=== PATIENT | female | born 1980 | race Caucasian/White ===

== ENCOUNTER → 2020-08-02 09:38 | Outpatient (CLI) | payer OTHER, SELFPAY ==
--- NOTE | ~2020-08-02 | US_ITS ---
EXAMINATION: US transvaginal DATE: 08/02/2020 10:14 INDICATION: Displacement of IUD with short strings on exam. TECHNIQUE: Multiple transabdominal and endovaginal sonographic images of the pelvis were obtained. COMPARISON: None. FINDINGS: The uterus measures 6.9 x 3.1 x 4.8 cm. The endometrial complex measures 3 mm in thickness. Linear e chogenic and shadowing T-shaped IUD in expected position within the endometrial canal with craniocaud ally oriented central stem and with horizontally oriented limbs extending across the fundus. The righ t ovary measures 3.8 x 2.1 x 2.4 cm. The left ovary measures 2.2 x 1.5 x 1.7 cm. 7 mm anechoic follic le in the right ovary. Vascular flow identified in both ovaries on color Doppler. There is no free fl uid in the pelvis. IMPRESSION: 1. Normal pelvic ultrasound with T-shaped IUD in expected position within the endometrial canal. Reviewed, dictated and finalized at location B. NING AND QUALITY MANAGER IMPRESSION: 1. Normal pelvic ultrasound with T-shaped IUD in expected position within the e ndometrial canal.
== END ==
PROVIDERS: Visit Provider Nurse Practitioner
DX: T83.32XA Displacement of intrauterine contraceptive device, initial encounter (principal)
CPT/HCPCS: 76830

== ENCOUNTER → 2020-08-27 00:27 | Outpatient (CLI) | payer OTHER, SELFPAY ==
[2020-08-27 18:30] LABS: SARS-CoV-2 RNA PCR Negative
== END ==
PROVIDERS: Visit Provider Internal Medicine Gastroenterology
DX: Z01.812 Encounter for preprocedural laboratory examination (principal); Z20.822 Contact with and (suspected) exposure to COVID-19
CPT/HCPCS: C9803; U0003; U0005

== ENCOUNTER 2020-08-30 04:34 | Day surgery (SDC) | payer OTHER, SELFPAY ==
[2020-08-21 15:46] VITALS: BMI 20.9
[2020-08-30 11:15] VITALS: BP 150/64; PULSE 69; RESP 16; TEMP 36.8; O2SAT 100
[2020-08-30] MEDS: LACTATED RINGERS 1,000 ML 150 ML IV CONT (11:24)
--- NOTE | 2020-08-30 11:40 | WPDANESEPPF ---
Anes - Initial Pre Proc Eval Procedure: Operation Date: 08/30/20 12:30 Proposed Procedures p Colonoscopy - Helio Almonte MD Date/Time: 08/30/20 11:40 Surgeon: Helio Almonte MD Pre Op Diagnosis: Rectal Bleeding Patient Data Age: 40 Gender: F Height: 5 ft 6 in Weight: 60.4 kg Last Vital Signs Temp 98.2 F 08/30/20 11:15 Pulse 69 08/30/20 11:15 Resp 16 08/30/20 11:15 BP 150/64 H 08/30/20 11:15 Pulse Ox 100 08/30/20 11:15 Allergies Allergy/AdvReac Type Severity Reaction Status Date / Time Sulfa (Sulfonamide Allergy Intermediate Skin Verified 08/30/20 11:14 Antibiotics) Reaction Home Medications Medication Instructions Recorded Confirmed Type prenat.vits,john,jdh-kuvb-[id number] 1 tablet PO DAILY 08/09/20 08/30/20 History scopolamine base 1 mg over 3 days 1 patch TRANSDERMAL Q3D PRN #1 ea 08/09/20 08/30/20 Rx transdermal patch Patient hx anesthesia problems: none Family hx anesthesia problems: none PMFSH Past Medical History Medical History (Updated 08/30/20 @ 11:40 by Severo Cartagena MD) Healthy adult Family History Family History Mother Patient's mother is in good health Father Patient's father is in good health Grandparent Family history of malignant neoplasm of breast Family history of coronary artery disease Social History Social History Smoking status: Never smoker Alcohol intake: never Substance use: never Substance use type: does not use Living arrangements: with family Spiritual care concerns: No Anes - Eval Final PreProcedure Day of Procedure 08/30/20 11:40 Patient weight: normal Heart: regular rate and rhythm Lungs: clear to auscultation Airway: Mallampati scale class II Neurological: alert and oriented Last oral intake: >/= 8 hours ASA classification: I Emergent: no Anesthetic plan: proceed Anesthesia type and monitoring: general GIVS and standard monitoring Informed Consent: The patient's anesthetic plan and its attendant risks and benefits were discussed with the patient/family/POA. Questions were solicited and answers provided to the satisfaction of the patient/family/POA.
--- NOTE | 2020-08-30 12:15 | WPDHPUPDATE1 ---
History and Physical Update Update Date/Time: 08/30/20 12:15 History and Physical has been reviewed, including an updated exam of the patient. There are NO changes in the patient's condition. Risks, benefits, and alternatives have been discussed and questions answered. Patient agrees to proceed with procedure.
[2020-08-30 12:38] VITALS: BP 108/66; PULSE 66; RESP 22; O2SAT 100
[2020-08-30 12:48] VITALS: BP 110/69; PULSE 61; RESP 19; O2SAT 100
[2020-08-30 12:58] VITALS: BP 112/68; PULSE 59; RESP 18; O2SAT 100
== END 2020-08-30 13:12 | disposition home or self-care (01) ==
PROVIDERS: PCP Family Medicine; Visit Provider Internal Medicine Gastroenterology
PROC: 0DJD8ZZ Inspection of Lower Intestinal Tract, Via Natural or Artificial Opening Endoscopic (ICD-10-PCS; CPT 45378; principal; 2020-08-30 12:30)
DX: K92.1 Melena (principal); D12.8 Benign neoplasm of rectum; K64.8 Other hemorrhoids
CPT/HCPCS: 45385; 88305; J2704; J7120

== ENCOUNTER → 2021-05-09 14:51 | Outpatient (CLI) | payer OTHER, SELFPAY ==
--- NOTE | ~2021-05-09 | US_ITS ---
EXAMINATION: US OB transvaginal DATE: 05/09/2021 15:39 INDICATION: First trimester dating TECHNIQUE: Real-time pelvic transabdominal and transvaginal ultrasound was performed. COMPARISON: None. FINDINGS: The uterus measures 6.9 x 4.4 x 5.3 cm. There is an intrauterine gestational sac. A yolk s ac is identified. heart motion is identified measuring 119 beats per minute (bpm) by M-mode Dop pler. The crown rump length measures 4 mm , which correlates with an estimated gestational age of 6 weeks and 1 day(s) (+/-) 4 day(s). The left ovary is not visualized however no left adnexal abnormality is seen. The right ovary measure s 3.8 x 2.7 x 2.7 cm. There is normal vascular flow in the right ovary. There is no free fluid in the pelvis. IMPRESSION: 1. Live intrauterine with an estimated gestational age of 6 weeks and 1 day(s) (+/-) 4 day( s) and an estimated delivery date of 01/01/2022. Reviewed, dictated and finalized at location A. PATIONAL HEALTH NURSING DIRECTOR IMPRESSION: 1. Live intrauterine with an estimated gestational age of 6 weeks and 1 day(s) (+/-) 4 day(s) and an estimated delivery date of 01/01/2022.
== END ==
PROVIDERS: Visit Provider Obstetrics & Gynecology Gynecology
DX: O26.21 Pregnancy care for patient with recurrent pregnancy loss, first trimester (principal); Z3A.01 Less than 8 weeks gestation of pregnancy
CPT/HCPCS: 76817

== ENCOUNTER → 2021-06-03 15:35 | Outpatient (CLI) | payer OTHER, SELFPAY ==
--- NOTE | ~2021-06-03 | US_ITS ---
EXAMINATION: US OB transvaginal EXAM DATE: 06/03/2021 15:54 INDICATION: Bleeding during the 1st trimester. TECHNIQUE: Pelvic obstetrical transabdominal sonogram was performed by a technologist. There are mu ltiple grayscale and Doppler images available for interpretation. There are no earlier studies of th is gestation for comparison. FINDINGS: Uterus measures 9.3 x 5.0 x 6.5 cm. There is a rounded region of echogenicity within the ge station sac measuring 1 cm in largest dimension which corresponds to age 7 weeks 0 days. Rounded shap e is abnormal for crown-rump appearance, and no cardiac activity was demonstrated as would be e xpected for intrauterine gestation this size. No definite yolk sac identified. There is subchorionic hematoma measuring 7 x 5 x 12 mm. The ovaries are morphologically normal. IMPRESSION: demise. Small subchorionic hematoma. Reviewed, dictated and finalized at location A. STOCK LABORER
== END ==
PROVIDERS: Visit Provider Obstetrics & Gynecology Gynecology
DX: O36.4XX0 Maternal care for intrauterine death, not applicable or unspecified (principal); Z3A.00 Weeks of gestation of pregnancy not specified
CPT/HCPCS: 76817

== ENCOUNTER 2021-07-21 15:59 | Outpatient (RCR) | payer OTHER, SELFPAY ==
[2021-06-04] MEDS: RHO(D) IMMUNE GLOBULIN 300 MCG/2 ML SYRINGE IM (14:12)
[2021-06-17 14:58] LABS: Beta HCG Quantitative 215.84 mIU/ML
== END 2021-07-27 23:59 | disposition home or self-care (01) ==
LOC: ANHLAB 15:59
PROVIDERS: PCP Family Medicine; Visit Provider Obstetrics & Gynecology Gynecology
DX: Z29.13 Encounter for prophylactic Rho(D) immune globulin (principal); O36.0190 Maternal care for anti-D [Rh] antibodies, unspecified trimester, not applicable or unspecified; O26.21 Pregnancy care for patient with recurrent pregnancy loss, first trimester; O26.851 Spotting complicating pregnancy, first trimester; Z3A.00 Weeks of gestation of pregnancy not specified
CPT/HCPCS: 36415; 84702; 85461; 90384; 96372; J2790

== ENCOUNTER 2021-09-02 14:47 | Outpatient (RCR) | payer OTHER, SELFPAY ==
[2021-08-11 16:31] LABS: Beta HCG Quantitative 9.55 mIU/ML
[2021-09-02 15:36] LABS: Beta HCG Quantitative 2.55 mIU/ML
== END 2021-10-26 23:59 | disposition home or self-care (01) ==
LOC: ANHLAB 14:47
PROVIDERS: Visit Provider Obstetrics & Gynecology Gynecology
DX: O02.1 Missed abortion (principal); Z3A.00 Weeks of gestation of pregnancy not specified
CPT/HCPCS: 36415; 84702

== ENCOUNTER → 2021-12-12 11:28 | Outpatient (CLI) | payer OTHER, SELFPAY ==
--- NOTE | ~2021-12-12 | MM_ITS ---
EXAMINATION: MM screening [facility] BI w maribel HISTORY: Baseline screening mammogram TECHNIQUE: Craniocaudal and mediolateral oblique 3-D tomosynthesis images were obtained and synthetic 2-D images were generated. CAD analysis was submitted and interpreted. COMPARISON: None, baseline BREAST PARENCHYMAL COMPOSITION: The breasts are extremely dense, which lowers the sensitivity of mamm ography. FINDINGS: RIGHT BREAST: An asymmetry is present in the posterior third of the upper breast on the mediolateral oblique view. LEFT BREAST: There are asymmetries in the middle third of the inner breast on the craniocaudal view a nd the posterior third of the lower breast on the mediolateral oblique view. IMPRESSION: 1. Bilateral breast asymmetries. 2. Additional mammographic views and possible breast ultrasound are recommended. BI-RADS Category 0: Incomplete: Needs additional imaging evaluation. Reviewed, dictated and finalized at location A. IMPRESSION: 1. Bilateral breast asymmetries. 2. Additional mammographic views and possible breast ultrasound are recommended . BI-RADS Category 0: Incomplete: Needs additional imaging evaluation.
== END ==
PROVIDERS: PCP Family Medicine; Visit Provider Nurse Practitioner
DX: Z12.31 Encounter for screening mammogram for malignant neoplasm of breast (principal); R92.8 Other abnormal and inconclusive findings on diagnostic imaging of breast
CPT/HCPCS: 77063; 77067

== ENCOUNTER 2022-01-14 12:56 | Outpatient (RCR) | payer OTHER, SELFPAY | END 2022-04-12 23:59 | disposition home or self-care (01) | LOC: ANHGOSHLAB 12:56 | PROVIDERS: PCP Family Medicine; Visit Provider Obstetrics & Gynecology Gynecology | DX: O26.21 Pregnancy care for patient with recurrent pregnancy loss, first trimester (principal); Z3A.00 Weeks of gestation of pregnancy not specified | CPT/HCPCS: 36415; 84702 ==

== ENCOUNTER → 2022-01-22 15:13 | Outpatient (CLI) | payer OTHER, SELFPAY ==
--- NOTE | ~2022-01-22 | US_ITS ---
EXAMINATION: US OB <= 14 weeks fetus DATE: 01/22/2022 15:37 INDICATION: First trimester dating and viability assessment TECHNIQUE: Real-time pelvic transabdominal and transvaginal ultrasound was performed. COMPARISON: None. FINDINGS: The uterus measures 8.1 x 5.6 x 7.0 cm. There is an intrauterine gestational sac. A yolk s ac is identified. heart motion is identified measuring 165 beats per minute (bpm) by M-mode Dop pler. The crown rump length measures 1.8 cm , which correlates with an estimated gestational ag e of 8 weeks and 2 day(s) (+/-) 5 day(s). The right ovary is not visualized however no right adnexal abnormality is seen. The left ovary measur es 1.9 x 1.2 x 1.2 cm. There is normal vascular flow in the left ovary. There is no free fluid in the pelvis. IMPRESSION: 1. Live intrauterine with an estimated gestational age of 8 weeks and 2 day(s) (+/-) 5 day( s) and an estimated delivery date of 09/01/2022. Reviewed, dictated and finalized at location B. IMPRESSION: 1. Live intrauterine with an estimated gestational age of 8 weeks and 2 day(s) (+/-) 5 day(s) and an estimated delivery date of 09/01/2022.
== END ==
PROVIDERS: PCP Obstetrics & Gynecology Gynecology; Visit Provider Obstetrics & Gynecology Gynecology
DX: O26.21 Pregnancy care for patient with recurrent pregnancy loss, first trimester (principal); Z3A.08 8 weeks gestation of pregnancy
CPT/HCPCS: 76801

== ENCOUNTER 2022-02-22 09:34 | Emergency (ER) | payer OTHER, SELFPAY ==
[2022-02-22 09:50] VITALS: BP 124/77; PULSE 92; RESP 16; TEMP 37.1; O2SAT 100
--- NOTE | 2022-02-22 10:01 | ED.URI ---
HPI - URI/Sore Throat General Chief Complaint: Upper Respiratory Infection Stated Complaint: sore throat, ear irritation Time Seen by Provider: 02/22/22 09:37 Source: patient Mode of arrival: ambulatory Limitations: no limitations History of Present Illness HPI Narrative: 41-year-old female presents to [facility] with complaints of sore throat and bilateral ear pressure for the past 2 days. Patient denies fever, bodies, chills, nausea, vomiting or diarrhea. Patient is currently 13 weeks . Patient has not tried taking any fkki-[id number]-[id number] medications for her symptoms. Patient reports that she did complete negative home COVID test. Patient denies sick contacts. Patient denies recent travel. MD elicited complaint: sore throat Onset (ago): day(s) (2) Able to tolerate fluids by mouth: Yes Relieving factors: nothing Associated symptoms: ear pain Treatments prior to arrival: none Related Data Home Medications Medication Instructions Recorded Confirmed prenat.vits,john,jhp-ibxl-cvfrb 1 tablet PO DAILY 08/09/20 02/22/22 Allergies Allergy/AdvReac Type Severity Reaction Status Date / Time Sulfa (Sulfonamide Allergy Intermediate Skin Verified 02/22/22 09:44 Antibiotics) Reaction Review of Systems Constitutional: Constitutional: Denies chills, Denies fatigue, Denies fever(s) and Denies weakness ENT: Denies dysphagia, Denies vertigo, Denies dizziness, Denies epistaxis and Reports sore throat Comments: Bilateral ear pressure Respiratory: Respiratory: Denies cough, Denies dyspnea and Denies wheezing Gastrointestinal: Gastrointestinal: Denies heartburn, Denies diarrhea, Denies nausea and Denies vomiting Integumentary/Breasts: Skin/Breast: Denies rash PMFSH Past Medical History Medical History Healthy adult Rectal polyp Family History Family History Mother Patient's mother is in good health Father Patient's father is in good health Grandparent Family history of malignant neoplasm of breast Family history of coronary artery disease Social History Social History Alcohol intake: never Substance use: never Substance use type: does not use Spiritual care concerns: No Comments At time of signature, I agree with nursing past medical, surgical, social and family history. There is no relevant family history pertinent to the presenting complaint. Exam Const: General: healthy appearing and no acute distress Nutritional Appearance: well nourished Orientation/consciousness: patient oriented x3 Limitations: no limitations HENMT: Head: normal to inspection Ears: external ears normal, TM's normal bilaterally and EAC's normal General nose exam: Normal external nose present Face and sinus: normal facial exam Mouth: Yes Normal oral and palatal mucosa present and Yes moist mucous membranes Teeth and gingiva: dentition normal Throat: posterior oropharynx normal and uvula midline Neck: Neck: normal visual inspection Resp: Effort & Inspection: normal respiratory effort and not labored Auscultation: clear to auscultation bilaterally and no crackles Cardio: Rate: regular rate Rhythm: regular rhythm Heart sounds: no murmurs Skin: General skin exam: normal color Rashes: no rashes Wounds: no wounds Neuro: General: patient oriented x3 Cranial nerves: Yes Nystagmus not present Speech: normal speech Gait exam (Neuro): Normal gait present Psych: Mental Status: mental status grossly normal Affect: normal affect Attitude: cooperative Course Course Level of Care: Express Care Visit Vital Signs Vital signs: Vital Signs Temperature 37.1 C 02/22/22 09:50 Pulse Rate 92 02/22/22 09:50 Respiratory Rate 16 02/22/22 09:50 Blood Pressure 124/77 02/22/22 09:50 Pulse Oximetry 100 02/22/22 09:50 Temperature 37.1 C
== END 2022-02-22 10:12 | disposition home or self-care (01) ==
PROVIDERS: Emergency Provider Nurse Practitioner Family; PCP Obstetrics & Gynecology Gynecology
DX: J02.9 Acute pharyngitis, unspecified (principal); O99.511 Diseases of the respiratory system complicating pregnancy, first trimester; Z3A.13 13 weeks gestation of pregnancy
CPT/HCPCS: 87081; 87880; 99213; G0463

== ENCOUNTER 2022-03-18 14:17 | Outpatient (CLI) | payer OTHER, SELFPAY ==
[2022-03-18 18:41] LABS: Basophils Percent Auto 0.4 % (0.2-1.2); Eosinophils Percent Auto 0.6 % (0-4.4); Hematocrit 36.9 % (37.0-47.0); Hemoglobin 12.3 g/dL (12.0-15.0); Immature Granulocyte Absolute 0.04 K/mm3 (0.00-0.031); Immature Granulocyte Percent A 0.6 % (0-0.5); Lymphocytes Percent Auto 18.9 % (18.3-44.2); Mean Corpuscular HGB Conc 33.3 g/dl (32-36); Mean Corpuscular Hemoglobin 30.9 pg (26-34); Mean Corpuscular Volume 92.7 fl (80-100); Mean Platelet Volume 10.9 fl (7.4-10.4); Monocytes Absolute Auto 0.5 K/mm3 (0.1-0.6); Monocytes Percent Auto 7.7 % (2.6-8.5); Neutrophils Absolute Auto 4.9 K/mm3 (1.3-6.7); Neutrophils Percent Auto 71.8 % (45.5-73.1); Platelet Count Result 173 k/mm3 (150-375); Red Blood Count 3.98 M/mm3 (4.2-5.4); Red Cell Distribution Width 13.2 % (11.5-14.5); White Blood Count 6.9 K/mm3 (4.5-10.0)
[2022-03-18 19:14] LABS: Hepatitis B Surface Antigen Negative (Negative); Rubella IgG Antibody 44.8 IU/ML
[2022-03-18 19:15] LABS: Vitamin D 25 Hydroxy 35.4 ng/mL
[2022-03-18 19:21] LABS: HIV 1/2 Ab P24 Ag Result Negative (Negative)
[2022-03-18 19:30] LABS: Hepatitis C Virus Antibody Negative (Negative)
[2022-03-19 06:35] LABS: Rapid Plasma Reagin Non-Reactive (NonReactive)
[2022-03-23 19:38] LABS: Red Blood Cell Folate 567 ng/mL RBC (>280)
== END 2022-03-18 14:18 | disposition home or self-care (01) ==
PROVIDERS: PCP Obstetrics & Gynecology Gynecology; Visit Provider Advanced Practice Midwife
DX: Z36.9 Encounter for antenatal screening, unspecified (principal); E55.9 Vitamin D deficiency, unspecified
CPT/HCPCS: 36415; 82306; 82728; 82747; 85025; 86592; 86703; 86762; 86803; 86850; 86900; 86901; 87340; G0432

== ENCOUNTER 2022-05-04 08:58 | Observation (INO) | payer OTHER, SELFPAY ==
[2022-05-04 09:19] VITALS: BP 116/71; PULSE 92
[2022-05-04 09:23] LABS: Appearance Urine Clear (Clear); Bilirubin Urine 1+ (Negative); Blood Urine Negative (Negative); Color Urine Yellow (Yellow); Glucose Urine UA Negative (Negative); Ketones Urine 4+ mg/dL (Negative); Leukocyte Esterase Ur Trace LEU/UL (Negative); Nitrate Urine Negative (Negative); Protein Urine 1+ mg/dL (Negative); Specific Grav Ur >= 1.030 (1.001-1.035); Urobilinogen Urine 0.2 mg/dL (<2.0); pH Urine 5.5 (5.0-9.0)
[2022-05-04 09:27] LABS: Bacteria Urine Trace /hpf; Mucus Urine Rare /lpf; RBC Urine 0-2 /hpf (0-2); Squamous Epithelial Cell Urine Moderate /hpf (Few)
[2022-05-04 09:28] LABS: Add Urine Microscopic? YES
[2022-05-04 09:30] VITALS: TEMP 36.7
--- NOTE | 2022-05-04 09:42 | PC.NURSE ---
Dr Avalos notified of nausea, vomiting and UA results, orders received.
[2022-05-04] MEDS: DEXTROSE 5%/LACTATED RINGERS 1,000 ML 1000 ML IV CONT (10:08)
[2022-05-04 10:17] VITALS: BMI 24.3
--- NOTE | 2022-05-04 10:17 | OBADM ---
This patient, Nan Curtis, admitted to the OB room OB Post 116 for observation. Patient/family oriented to hospital policies and general routines including ID bracelet, bed and alarms, visiting hours, pain management, procedures, bathroom and other care routines, personal items, smoking policy, room service/diet, and visiting hours. Patient/Family are encouraged to report perceived risks to care and to ask questions if they do not understand what they are told or what they should do.
[2022-05-04] MEDS: DEXTROSE 5%/LACTATED RINGERS 1,000 ML 250 ML IV CONT ×2 (11:07→15:53)
[2022-05-04] MEDS: ONDANSETRON INJ 4 MG/2 ML VIAL IV PUSH ×2 (11:08→18:54)
[2022-05-04 17:30] VITALS: RESP 18; TEMP 36.8
[2022-05-04 17:37] VITALS: BP 102/59; PULSE 86
--- NOTE | 2022-05-04 19:14 | PC.NURSE ---
1853 patient requested Zofran, states she is feeling better but not 100%. Encouraged to continue small frequent sips of PO fluids. Will reevaluate pt when IV fluids are finished. Pt instructed to call out with questions or concerns. Letitia Ohara RN
--- NOTE | 2022-05-04 20:52 | PC.NURSE ---
2030 Janie Williamson CNM in department. Updated on patient status, patient requesting to d/c home. I&O reviewed. Order received to d/c home with instructions to increase PO fluids and monitor. Verbal order received for Zofran ODT to be sent to pharmacy. Letitia Ohara RN
--- NOTE | 2022-05-08 09:08 | P.PNOB_ITS ---
OB - Triage/Final Diagnosis Visit Information Reason for evaluation: other (nausea with vomiting and severe dehydration) Comments/Additional reasons for admission: I have assessed the risk for this patient, Nan Curtis, and determined that she would benefit from observation care. Evaluation Laboratory results: Laboratory Tests 05/04/22 09:15 Urine Color Yellow Urine Appearance Clear Urine pH 5.5 Ur Specific [place] >= 1.030 Urine Protein 1+ H Urine Glucose (UA) Negative Urine Ketones 4+ H Ur Blood (Man) Negative Urine Nitrate Negative Urine Bilirubin 1+ H Urine Urobilinogen 0.2 Leukocyte Esterase Rfl Trace H Urine RBC 0-2 Urine WBC 4-6 H Ur Squamous Epith Cells Moderate H Urine Bacteria Trace Urine Mucus Rare
== END 2022-05-04 20:49 | disposition home or self-care (01) ==
PROVIDERS: Admitting Provider Obstetrics & Gynecology Gynecology; PCP Family Medicine; Visit Provider Advanced Practice Midwife
DX: O21.9 Vomiting of pregnancy, unspecified (principal); O99.282 Endocrine, nutritional and metabolic diseases complicating pregnancy, second trimester; E86.0 Dehydration; Z3A.22 22 weeks gestation of pregnancy
CPT/HCPCS: 81001; 96361; 96374; 96376; G0378; G0379; J2405; J7121

== ENCOUNTER 2022-06-28 12:06 | Outpatient (RCR) | payer OTHER, SELFPAY ==
[2022-06-27 10:55] LABS: Hematocrit 41.3 % (37.0-47.0); Hemoglobin 13.9 g/dL (12.0-15.0)
[2022-06-27 11:29] LABS: Vitamin D 25 Hydroxy 31.6 ng/mL
[2022-06-27 11:46] LABS: HIV 1/2 Ab P24 Ag Result Negative (Negative)
[2022-06-27 13:10] LABS: Glucose 91 mg/dL (65-110)
[2022-06-28] MEDS: RHO(D) IMMUNE GLOBULIN 300 MCG/2 ML SYRINGE IM (12:06)
== END 2022-06-28 13:00 | disposition home or self-care (01) ==
LOC: ANHLAB 12:06
PROVIDERS: PCP Family Medicine; Visit Provider Obstetrics & Gynecology Gynecology
DX: Z11.4 Encounter for screening for human immunodeficiency virus [HIV] (principal); Z29.13 Encounter for prophylactic Rho(D) immune globulin; O36.0190 Maternal care for anti-D [Rh] antibodies, unspecified trimester, not applicable or unspecified; Z3A.00 Weeks of gestation of pregnancy not specified
CPT/HCPCS: 36415; 82306; 82947; 85014; 85018; 85461; 86703; 86850; 86900; 86901; 90384; 96372; G0432; J2790

== ENCOUNTER → 2022-08-14 09:27 | Outpatient (CLI) | payer OTHER, SELFPAY ==
--- NOTE | ~2022-08-14 | US_ITS ---
EXAMINATION: US OB follow up DATE: 08/14/2022 10:13 INDICATION: Partial placenta previa. Third trimester. TECHNIQUE: Real-time transabdominal and transvaginal ultrasound of the pelvis was performed. COMPARISON: Ultrasound 01/22/2022 FINDINGS: There is a single living fetus in vertex presentation. The placenta is on the right, 0.6 cm from the cervix. The cervical length is 2.6 cm on transvaginal images, which is normal. heart rate is 1 55 beats per minute (bpm). The amniotic fluid index is 14.7 cm, which is normal. The following biometric data were obtained: Biparietal diameter (BPD): 9.1 cm; head circumference (HC): 33.2 cm; abdominal circumference (AC): 32 .5 cm; femur length (FL): 7.1 cm. These measurements are concordant. Estimated weight is 3003 g +/- 450 g, which correlates with the 39th percentile when 09/01/22 is used as estimated date of delivery. As single measurements, these parameters are each equal to the following estimated gestational ages: BPD: 37 weeks 0 days. HC: 37 weeks 6 days. AC: 36 weeks 3 days. FL: 36 weeks 3 days. estimated gestational age based solely on measurements from this exam is 37 weeks 0 days +/- 2 weeks 4 days. IMPRESSION: 1. Single living fetus in vertex presentation. 2. Estimated weight is 3003 g +/- 450 g, which correlates with the 39th percentile when 09/01/22 is used as estimated date of delivery. 3. Low lying placenta. Reviewed, dictated and finalized at location A.
== END ==
PROVIDERS: PCP Family Medicine; Visit Provider Advanced Practice Midwife
DX: O44.23 Partial placenta previa NOS or without hemorrhage, third trimester (principal); Z3A.37 37 weeks gestation of pregnancy
CPT/HCPCS: 76816

== ENCOUNTER 2022-08-26 11:03 | Outpatient (CLI) | payer OTHER, SELFPAY ==
[2022-08-26 18:44] LABS: Hematocrit 39.9 % (37.0-47.0); Hemoglobin 13.2 g/dL (12.0-15.0); Mean Corpuscular HGB Conc 33.1 g/dl (32-36); Mean Corpuscular Hemoglobin 31.4 pg (26-34); Mean Corpuscular Volume 94.8 fl (80-100); Mean Platelet Volume 12.6 fl (7.4-10.4); Platelet Count Result 167 k/mm3 (150-375); Red Blood Count 4.21 M/mm3 (4.2-5.4); Red Cell Distribution Width 12.7 % (11.5-14.5); White Blood Count 9.5 K/mm3 (4.5-10.0)
[2022-08-27 13:58] LABS: Rapid Plasma Reagin Non-Reactive (NonReactive)
== END 2022-08-26 11:04 | disposition home or self-care (01) ==
LOC: ANHGOSHLAB 11:05
PROVIDERS: PCP Family Medicine; Visit Provider Obstetrics & Gynecology Gynecology
DX: Z01.818 Encounter for other preprocedural examination (principal)
CPT/HCPCS: 36415; 85027; 86592; 86850; 86880; 86900; 86901

== ENCOUNTER 2022-08-27 05:29 | Inpatient (IN) | payer OTHER, SELFPAY ==
--- NOTE | 2022-08-26 15:27 | WPDANESEPPF ---
Anes - Initial Pre Proc Eval Procedure: Operation Date: 08/27/22 07:30 Proposed Procedures p Primary Section With Bilateral Salpingectomy - Steffany Avalos MD Date/Time: 08/26/22 15:27 Surgeon: Steffany Avalos MD Pre Op Diagnosis: C/S Patient Data Age: 42 Gender: F Height: Weight: Allergies Allergy/AdvReac Type Severity Reaction Status Date / Time Sulfa (Sulfonamide Allergy Intermediate Skin Verified 08/15/22 15:37 Antibiotics) Reaction Home Medications Medication Instructions Recorded Confirmed Type prenat.vits,john,ewa-qccc-gdahe 1 tablet PO DAILY 08/09/20 08/27/22 History Patient hx anesthesia problems: none Family hx anesthesia problems: none Results Review: All pre-operative results and documents have been reviewed as part of the pre-operative evaluation. [facility] Past Medical History Medical History Healthy adult Rectal polyp Family History Family History Mother Patient's mother is in good health Father Patient's father is in good health Grandparent Family history of malignant neoplasm of breast Family history of coronary artery disease Social History Social History Smoking status: Never smoker Second hand tobacco smoke exposure: No Alcohol intake: never Substance use: never Substance use type: does not use Lack of Transportation: No Lack of Food: Never True Current Housing: I Have Housing Concerned About Future Housing: No Difficulty Paying Gas/Electric Bills: No Difficulty Paying for Meds: No Currently Unemployed: No Education: Master's Degree or Higher Difficulty w/ Childcare or Family Care: No Living arrangements: with family Spiritual care concerns: No Anes - Eval Final PreProcedure Day of Procedure 08/26/22 15:27 Patient weight: obese Heart: regular rate and rhythm Lungs: clear to auscultation Airway: Mallampati scale class II Neurological: alert and oriented Last oral intake: >/= 8 hours ASA classification: II Emergent: no Anesthetic plan: proceed Anesthesia type and monitoring: regional spinal and standard monitoring Results Review: All pre-operative results and documents have been reviewed as part of the pre-operative evaluation. Informed Consent: The patient's anesthetic plan and its attendant risks and benefits were discussed with the patient/family/POA. Questions were solicited and answers provided to the satisfaction of the patient/family/POA.
[2022-08-27] VITALS (67 sets, daily range): BP systolic 115–130; BP diastolic 55–80; PULSE 50–89; RESP 12–18; TEMP 36.4–37.9; O2SAT 85–100; BMI 30.7
[2022-08-27] MEDS: LACTATED RINGERS 1,000 ML 999 ML IV CONT (06:08)
--- NOTE | 2022-08-27 06:28 | LDADM ---
This patient, Nan Curtis, was admitted to Labor/Delivery/Recovery 120 on 08/27/22 at 05:29. Plans for labor, pain management and were discussed with patient. Patient/family oriented to hospital policies and general routines including ID bracelet, bed and alarms, visiting hours, pain management, procedures, bathroom and other care routines, personal items, smoking policy, room service/diet and guest tray routines, security routines, and visiting hours. Patient/Family are encouraged to report perceived risks to care and to ask questions if they do not understand what they are told or what they should do. See OBIX for further documentation.
[2022-08-27] MEDS: LACTATED RINGERS 1,000 ML 125 ML IV CONT (07:15)
--- NOTE | 2022-08-27 07:16 | PM.IMHP ---
H&P: HPI History of Present Illness Date/Time: 08/27/22 07:16 Chief Complaint: Low lying placenta Narrative: The patient is a 42-year-old 6 para 1 aborta 4 admitted for primary low-transverse section and bilateral salpingectomies at 39 weeks for low-lying placenta. Patient has completed her childbearing and requests permanent sterilization. Patient has had an uncomplicated otherwise. Placenta remains low at 0.6cm from the cervix. Due to advanced maternal age the patient did have a level 2 ultrasound that was normal. She did decline any genetic testing. labs O negative, rubella immune, RPR negative, hepatitis-B surface antigen, negative group B strep positive. Review of Systems Review of Systems: not repeated day of surgery; patient states no changes in status PMFSH Past Medical History Medical History (Updated 08/27/22 @ 07:22 by Steffany Avalos MD) Healthy adult (normal spontaneous vaginal delivery) Rectal polyp Spontaneous x4 2 required Surgical History Surgical History (Updated 08/27/22 @ 07:21 by Steffany Avalos MD) History of D&C x2 Family History Family History Mother Patient's mother is in good health Father Patient's father is in good health Grandparent Family history of malignant neoplasm of breast Family history of coronary artery disease Social History Social History Smoking status: Never smoker Second hand tobacco smoke exposure: No Alcohol intake: never Substance use: never Substance use type: does not use Lack of Transportation: No Lack of Food: Never True Current Housing: I Have Housing Concerned About Future Housing: No Difficulty Paying Gas/Electric Bills: No Difficulty Paying for Meds: No Currently Unemployed: No Education: Master's Degree or Higher Difficulty w/ Childcare or Family Care: No Living arrangements: with family Spiritual care concerns: No Meds Home Medications and Allergies Home Medications Medication Instructions Recorded Confirmed Type prenat.vits,john,mas-fxdp-ewpbf 1 tablet PO DAILY 08/09/20 08/27/22 History Allergies Allergy/AdvReac Type Severity Reaction Status Date / Time Sulfa (Sulfonamide Allergy Intermediate Skin Verified 08/15/22 15:37 Antibiotics) Reaction Vital Signs Vital Signs - 24 hr 08/27/22 05:50 08/27/22 05:51 08/27/22 06:26 Temperature 98.6 F Pulse Rate 86 Blood Pressure 130/80 Pulse Oximetry 100 Oxygen Delivery Room Air Exam Const: General: healthy appearing and alert Orientation/consciousness: patient oriented x3 Resp: Effort & Inspection: normal respiratory effort GI: GI Palp: Yes Soft to palpation, No Tenderness to palpation present (GI) and Yes Other GI palpation findings present ( fundal height 36cm) : External Female Exam: normal external appearance Speculum Exam - Vagina: normal appearance of the vagina and normal vaginal discharge Speculum Exam - Cervix: normal appearance of the cervix Bimanual exam- vagina & uterus: consistency normal Bimanual Exam- Adnexa, other: normal adnexae and No adnexal tenderness Neuro: General: patient oriented x3 Assessment and Plan Assessment and plan (1) 39 weeks gestation of : Code(s): Z3A.39 - 39 weeks gestation of Status: Acute (2) Low-lying placenta: Code(s): O44.40 - Low lying placenta NOS or without hemorrhage, unspecified trimester Status: Acute Assessment and Plan: plan to proceed with primary low-transverse section (3) Encounter for sterilization: Code(s): Z30.2 - Encounter for sterilization Status: Acute Assessment and Plan: plan to proceed with bilateral salpingectomies patient is aware this is a permanent and irreversible procedure renderin
--- NOTE | 2022-08-27 07:23 | WPDHPUPDATE1 ---
History and Physical Update Update Date/Time: 08/27/22 07:23 History and Physical has been reviewed, including an updated exam of the patient. There are NO changes in the patient's condition. Risks, benefits, and alternatives have been discussed and questions answered. Patient agrees to proceed with procedure.
[2022-08-27] MEDS: ceFAZolin 2 GM/D5W 50 ML 2 GM/50 ML BAG IVPB (07:28)
--- NOTE | 2022-08-27 08:26 | W.PM.PROC2 ---
Procedure Note - Detailed Date of Procedure 08/27/22 Pre-op Diagnosis Intrauterine at 39 weeks low lying placenta request sterilization Post-op Diagnosis Same Procedure Performed primary low-transverse section and bilateral salpingectomy Surgeon Steffany Avalos MD Anesthesia Spinal Findings male infant with 9 and 9 Apgars weighing 7lb 13oz; normal-appearing tubes, ovaries, and uterus Description of Procedure The patient is taken to the operating room and placed under spinal anesthesia in the dorsal supine position with a leftward tilt. Once anesthesia was deemed adequate, the patient was prepped and draped in the usual sterile fashion. A Pfannenstiel skin incision was made with a scalpel and carried down to the underlying fascia which was nicked in the midline. The incision was extended laterally using Gao scissors. Subcutaneous tissues are made hemostatic using Bovie cautery. The [facility] was used to tent the fascia which was then dissected off using sharp and blunt dissection. The rectus muscles are in the midline and the peritoneum tented and entered with Metzenbaum. The incision was extended with blunt traction and the bladder blade placed. The vesicouterine peritoneum was tented and entered with Metzenbaum and extended laterally. The the bladder flap was created digitally and the bladder blade is replaced. The lower uterine segment was incised in a transverse fashion with the scalpel. Membranes were ruptured and clear fluid noted. vertex is elevated into the incision and while the assistant facility manager applied fundal pressure the infant was delivered. Delayed cord clamping for 1minute. The cord was then clamped, cut, and the handed to the waiting nursery nurse. The placenta is removed using manual traction. The uterus is cleared of all clots and debris and exteriorized. The uterine incision was closed using 0 Monocryl in a running locked fashion with the same suture used to imbricate. Good hemostasis is noted. The bladder flap has bleeding vessels that were cauterized. The cul-de-sac is irrigated. The right tube was grasped with [place] and the Z clamp is used to cross-clamp the tube. The tube was excised leaving approximately 2cm at the cornea. The pedicle was tied off using a Marga stitch and a free tie. The identical procedure was performed on the left side. The uterus was returned to the abdomen. The incision was again inspected noted to be hemostatic. The fascia was closed using 0 Vicryl in a running fashion. Subcutaneous tissues were irrigated and made hemostatic using Bovie cautery. Skin is closed using 4-0 Vicryl in a subcuticular fashion. Dermaflex was placed over the incision. There was some minimal oozing through the incision on the right corner therefore a pressure dressing is applied. Patient was taken to recovery in stable condition. Sponge, needle, and instrument counts are correct per the OR staff. Ancef was given prior to cord clamp. Estimated Blood Loss 300 Drains Yes ( Cancino catheter) Packing No Pathology Yes ( bilateral fallopian tubes) Complications No immediate complications Condition Stable Disposition Floor
--- NOTE | 2022-08-27 08:31 | PM.OBDSVD ---
DS: Admitting Diagnosis Discharge Date 08/30/22 Admitting Diagnosis intrauterine at 39 weeks with low lying placenta request sterilization DS: Discharge Diagnosis Discharge Diagnosis (1) delivery delivered: Code(s): O82 - Encounter for delivery without indication Status: Acute (2) 39 weeks gestation of : Code(s): Z3A.39 - 39 weeks gestation of Status: Acute (3) Low-lying placenta: Code(s): O44.40 - Low lying placenta NOS or without hemorrhage, unspecified trimester Status: Acute (4) Encounter for sterilization: Code(s): Z30.2 - Encounter for sterilization Status: Acute OB - DS: Summary OB Procedures : Ultrasound OB Procedures Intrapartum: low cervical, transverse and Tubal ligation OB Procedures: : None Peripartum Data Infant Delivery Method: Section Procedures: Procedures Operation Date: 08/27/22 07:30 Actual Procedure Side Surgeon p Section Steffany Avalos MD complications: none Status at Discharge Functional status at discharge: independent ambulation Overall status at discharge: patient is progressing back to baseline Time Spent with Patient Time attestation: Total time spent providing and/or coordinating discharge services: DS: Data Data Completed and Pending Pending studies at discharge: Pending at discharge 08/27/22 08:07 Surgical [PTH] Routine Discharge Plan Discharge Attending physician on discharge: Steffany Avalos Discharging Clinician: Chinmay Souza Anticipated Discharge Date/Time: 08/30/22 08:32 Patient Disposition: Home, Self-Care Activity: may shower, may drive after 2 weeks and pelvic rest Diet: regular Wound Care Instructions: incision open to air Discharge Instructions: Education: Mom and Baby Guide Given to: Mother Follow-Up: Call your delivering provider's office for an appointment to be seen in: 1 Week Mom and baby should come to the [facility] for the follow-up appointment. Appointment Date/Time: August 31, 2022 at 8:00 am What to expect at your follow-up visit: Blood Pressure Check Call [phone] if you are unable to keep your appointment time. BREAST CARE: * Wear a snug supportive bra. * For engorgement discomfort: Breast Feeding: * Apply warm moist washcloths * Express milk as needed to relieve engorgement * Wear loose clothing Bottle Feeding: * May apply ice packs * For sore nipples: * Identify correct latch-on * Apply warm moist washcloths before and after nursing * Air dry nipples after nursing * May apply Lansinoh cream to nipples ABDOMINAL INCISION: (if applicable) * Allow incision to air dry * Do NOT use lotions for powders on your incision * When showering, allow soap and water to run over the incision, but do not wash incision PERINEAL CARE: * Until bleeding stops, use your lizbeth bottle after urinating * Change your pad frequently throughout the day * No tub baths until seen by your physician - You may shower ACTIVITY: * Rest as much as possible. * Do not exercise or lift anything heavier than your baby (such as laundry or other children.) * Avoid stairs or driving as much as possible. * Do not put anything into the vagina. No douching, tampons, or sexual activity until seen by physician. NOTIFY PHYSICIAN IF YOU HAVE ANY QUESTIONS OR IF ANY OF THE FOLLOWING SYMPTOMS OCCUR: * If your incision becomes red, swollen, or more painful than what you have experienced in the hospital. * If your vaginal bleeding becomes foul smelling. * If your vaginal bleeding becomes more heavy than a period or if your bleeding changes from pink to bright red. However, you may pass an occasional walnut-sized clot once or twice for the first week . * I
[2022-08-27] MEDS: OXYTOCIN 30 UNITS/NS 500 ML 30 UNITS/500 ML BAG 125 UNITS IV CONT (09:07)
--- NOTE | 2022-08-27 11:27 | OBPPTRN ---
Patient transferred to post room # 291 via stretcher and moved to bed via maxi air with assistance. Support person accompanied pt to the room. PT introductions made and plan of care discussed per post op c section, pain management, breast feeding, daily care activities and pumping or hand expression while in level 2 nursery. PT and spouse both recipients of such instructions and no barriers to learning identified at this time. PT received instructions per one to one discussion, mom baby care guide and demonstrations.Oriented to unit, room, information board, rooming in, admission packet and security measures. Patient verbalizes understanding.
[2022-08-27] MEDS: ACETAMINOPHEN 325 MG TABLET 650 MG PO ×2 (12:35→18:48)
[2022-08-27] MEDS: SIMETHICONE 80 MG TAB.CHEW PO ×2 (12:36→18:49)
[2022-08-27] MEDS: IBUPROFEN 600 MG TABLET PO ×2 (12:36→18:49)
[2022-08-27] MEDS: DEXTROSE 5%/0.45% SOD CHL 1,000 ML 125 ML IV CONT (14:02)
[2022-08-27] MEDS: LANOLIN (LANSINOH) 7.5 GM CREAM 1 APPLIC TOPICAL (14:03)
--- NOTE | 2022-08-27 17:05 | PC.NURSE ---
[id number] Introductions were made, then consulted with patient to assess needs related to . Mother is relaxed with skin to skin and is sleeping. Reunited as parents and RN realized they shared the first child's experience together 4 years ago. Resource provided mentioning the mom/baby guide and RN's name written on the white board. Mother voiced understanding of information and requests assistance with reminders of the stage. Mother works well with her infant with encouragement. Encouraged understanding of the benefits of skin to skin (demonstrating unwrapping and placing upright on her chest), stimulating with massage touch, changing positions to encourage wakefulness, how to watch for early feeding cues, responsive feeding, hand expression, feeding on demand (aiming for 8-12 times in 24 hours, about every 2-3 hours), milk production, building/maintaining a milk supply, duration of feeding, signs of adequate intake/output and how to record on the feeding sheet. Time was given to after stimulating for wakefulness to use instincts to explore mothers chest and look for the breast. Mother hand expressed colostrum and latches briefly to the right breast, however; laid back position seems awkward at this time. We make a decision to practice the football positioning at the left breast. Reviewed positioning and ear, shoulder, hip alignment, supporting the breast to facilitate a deep latch, asymmetrical latch (off-center), leading with the chin with a big, open, wide gape and body close to mother. Infant latched optimally to the left breast in football position. Education given to mother of how to visualize suck/swallow ratios and listen for drinking at the breast. was able to maintain latch without discomfort to mother. Nipple care reviewed with optimal latch and good positioning. Resources used to facilitate learning were used with the tool. Mother voiced understanding of skin to skin, stimulating with massage touch, responsive feedings, hand expressed colostrum, talking to to encourage if it has been 2 -2.5 hours since the start of the last , to call if does not latch, or if there is discomfort with . Resources provided for inpatient assistance with feeding sheet and RN's name written on the white board. Parents voiced understanding of information, demonstrated learning and will call if there is a request for assistance.
--- NOTE | 2022-08-27 17:22 | PC.NURSE ---
late entry - Primary RN was encouraged to initiate pumping with patient related to separation. Primary RN stated mother had declined since was potentially coming up to the floor around 1400.
[2022-08-27] MEDS: DOCUSATE SODIUM 100 MG CAPSULE PO (18:48)
[2022-08-28 04:00] VITALS: BP 111/71; PULSE 77; RESP 18; TEMP 36.5; O2SAT 100
[2022-08-28] MEDS: IBUPROFEN 600 MG TABLET PO ×3 (04:48→22:05)
[2022-08-28] MEDS: ACETAMINOPHEN 325 MG TABLET 650 MG PO ×3 (04:49→22:05)
[2022-08-28] MEDS: SIMETHICONE 80 MG TAB.CHEW PO (04:49)
[2022-08-28 05:21] LABS: Basophils Absolute Auto 0.1 K/mm3 (0.0-0.1); Basophils Percent Auto 0.4 % (0.2-1.2); Eosinophils Percent Auto 0.4 % (0-4.4); Hematocrit 33.4 % (37.0-47.0); Immature Granulocyte Absolute 0.07 K/mm3 (0.00-0.031); Immature Granulocyte Percent A 0.6 % (0-0.5); Lymphocytes Absolute Auto 1.66 K/mm3 (0.9-3.2); Lymphocytes Percent Auto 14.7 % (18.3-44.2); Mean Corpuscular HGB Conc 32.9 g/dl (32-36); Mean Corpuscular Hemoglobin 31.6 pg (26-34); Mean Platelet Volume 11.7 fl (7.4-10.4); Monocytes Absolute Auto 0.9 K/mm3 (0.1-0.6); Monocytes Percent Auto 7.9 % (2.6-8.5); Neutrophils Absolute Auto 8.6 K/mm3 (1.3-6.7); Platelet Count Result 144 k/mm3 (150-375); Red Blood Count 3.48 M/mm3 (4.2-5.4); Red Cell Distribution Width 12.9 % (11.5-14.5); White Blood Count 11.3 K/mm3 (4.5-10.0)
[2022-08-28 07:35] VITALS: BP 123/79; PULSE 79; RESP 16; TEMP 36.2; O2SAT 100
--- NOTE | 2022-08-28 07:54 | PM.OBPNVD ---
OB - PN: Subj Subjective Date/time seen: 08/28/22 07:54 Patient comments: no complaints and pain well controlled baby status: doing well OB - PN: Obj Data Labs 08/28/22 05:06 Labs: Laboratory Results - last 24 hr 08/28/22 05:06 WBC 11.3 H RBC 3.48 L Hgb 11.0 L Hct 33.4 L MCV 96.0 MCH 31.6 MCHC 32.9 RDW 12.9 Plt Count 144 L MPV 11.7 H Immature Gran % (Auto) 0.6 H Neut % (Auto) 76.0 H Lymph % (Auto) 14.7 L [place] % (Auto) 7.9 Eos % (Auto) 0.4 Baso % (Auto) 0.4 Lymph # (Auto) 1.66 [place] # (Auto) 0.9 H Eos # (Auto) 0.0 Baso # (Auto) 0.1 Abs Immat Gran (auto) 0.07 H Absolute Neuts (auto) 8.6 H Absolute Nucleated RBC 0.0 Nucleated RBC % 0.0 OB - PN A/P Plan day: 1 Plan: routine care Comments: s/p LTCS and B salpingectomies Time Spent With Patient Time: Total time spent is greater than 50% in coordination of care (as documented) at patient's floor/unit and/or counseling patient: Exam Narrative: inc c/d/i : Bimanual exam- vagina & uterus: other (Uterus firm, nt @U)
[2022-08-28] MEDS: MULTIVIT/MIN/PREN/FOL AC/IRON TABLET 1 TAB PO (08:48)
[2022-08-28] MEDS: DOCUSATE SODIUM 100 MG CAPSULE PO ×2 (08:48→16:07)
--- NOTE | 2022-08-28 10:19 | WPDANLDPN2 ---
Anes-Prog Note L&D Date/Time: 08/28/22 10:19 Comfortable throughout: section Neuraxial method: spinal Epidural/Spinal procedure site: clean & non-tender Neuro status: Neuro function grossly intact. Cardiovascular status: normal Respiratory status: normal Airway patency: baseline Mental status: baseline Post-Op hydration status: normal Vital Signs: Last Vital Signs Temp 36.2 C L 08/28/22 07:35 Pulse 79 08/28/22 07:35 Resp 16 08/28/22 07:35 BP 123/79 08/28/22 07:35 Pulse Ox 100 08/28/22 07:35 O2 Del Method Room Air 08/27/22 12:00 Pain score (VAS): 3/10 I/O: Intake & Output 08/27/22 08/28/22 08/28/22 23:59 07:59 15:59 Intake Total 800 Output Total 1750 Balance -950 Post-procedural complaints: none Patient feedback: Patient satisfied with anesthetic care.
--- NOTE | 2022-08-28 10:19 | WPDANLDNPN2 ---
Anes-Prog Note L&D-Neuraxial Date/Time: 08/28/22 10:19 Neuraxial medications: intrathecal PF morphine Opiod-related complaints: none Patient feedback: Patient satisfied with post-operative pain management.
--- NOTE | 2022-08-28 15:58 | PC.NURSE ---
[id number] Purposefully rounded to assess mother's needs. Mother is eating breakfast. RN offered assistance to assess latching and swallowing at the breast related to the rafael + result for the . Mother is confident that is going well and will call if assistance is needed.
[2022-08-28 19:47] VITALS: BP 112/72; PULSE 77; RESP 18; O2SAT 99
[2022-08-29] MEDS: IBUPROFEN 600 MG TABLET PO ×3 (04:05→19:35)
[2022-08-29] MEDS: ACETAMINOPHEN 325 MG TABLET 650 MG PO ×3 (04:05→19:35)
[2022-08-29 06:30] VITALS: BP 127/83; PULSE 80; RESP 18; TEMP 36.8; O2SAT 99
[2022-08-29] MEDS: DOCUSATE SODIUM 100 MG CAPSULE PO (10:53)
[2022-08-29] MEDS: MULTIVIT/MIN/PREN/FOL AC/IRON TABLET 1 TAB PO (10:53)
[2022-08-29 19:30] VITALS: BP 135/77; PULSE 82; RESP 16; TEMP 36.8; O2SAT 99
[2022-08-30] MEDS: IBUPROFEN 600 MG TABLET PO ×2 (04:30→10:15)
[2022-08-30] MEDS: ACETAMINOPHEN 325 MG TABLET 650 MG PO ×2 (04:30→10:14)
--- NOTE | 2022-08-30 08:00 | PC.NURSE ---
PT introductions made and plan of care discussed per post op c section, pain management, breast feeding, daily care activities and pending discharge to home. PT and spouse both recipients of such instructions and no barriers to learning identified at this time. PT received instructions per one to one discussion, mom baby care guide and demonstrations this shift. Patient verbalizes understanding.
[2022-08-30] MEDS: DOCUSATE SODIUM 100 MG CAPSULE PO ×2 (10:16→10:30)
[2022-08-30] MEDS: SIMETHICONE 80 MG TAB.CHEW PO (10:16)
[2022-08-30] MEDS: MULTIVIT/MIN/PREN/FOL AC/IRON TABLET 1 TAB PO (10:16)
[2022-08-30 10:30] VITALS: BP 135/77; PULSE 91; RESP 20; TEMP 36.9; O2SAT 98
--- NOTE | 2022-08-30 11:15 | PC.NURSE ---
PT discharged instructions per protocol and pt verbalized understanding of such care. Patient was given the opportunity to view the discharge video Mother & Baby Care, The First Two Weeks and to ask questions. Patient declined viewing the video and has been given the mother/baby guide for home reference.
--- NOTE | 2022-08-30 11:50 | PC.NURSE ---
PT discharged to home ambulatory accompanied by spouse and and taken to waiting car. Follow up appts confirmed
[2022-08-31 08:15] VITALS: BP 144/87; PULSE 85; RESP 18; TEMP 37.1; O2SAT 100
== END 2022-08-30 11:50 | disposition home or self-care (01) | DRG 784 ==
LOC: ANHLDR 08:33 → ANHOB2 11:30
PROVIDERS: Admitting Provider Obstetrics & Gynecology Gynecology; PCP Family Medicine; Visit Provider Obstetrics & Gynecology Gynecology
PROC: 10D00Z1 Extraction of Products of Conception, Low, Open Approach (ICD-10-PCS; CPT 59514; principal; 2022-08-27 07:30)
DX: O34.211 Maternal care for low transverse scar from previous cesarean delivery (principal); O44.03 Complete placenta previa NOS or without hemorrhage, third trimester; Z30.2 Encounter for sterilization; O99.824 Streptococcus B carrier state complicating childbirth; Z3A.39 39 weeks gestation of pregnancy; Z37.0 Single live birth
CPT/HCPCS: 36415; 85025; 88302; A9270; J0131; J0690; J2274; J2590; J7120

== ENCOUNTER → 2022-11-06 08:52 | Outpatient (CLI) | payer OTHER, SELFPAY ==
--- NOTE | ~2022-11-06 | MMUS_ITS ---
EXAMINATION: MM diagnostic huseyin BI w maribel, US breast BI complete HISTORY: Follow-up bilateral breast asymmetries TECHNIQUE: Additional 3-D tomosynthesis images of the breasts were performed and synthetic 2-D images were generated. CAD analysis was submitted and interpreted. High resolution complete bilateral breas t ultrasound was performed. COMPARISON: 12/12/2021 BREAST PARENCHYMAL COMPOSITION: The breasts are extremely dense, which lowers the sensitivity of mamm ography FINDINGS: MAMMOGRAPHIC FINDINGS: There are no suspicious masses, calcifications or architectural distortion in either breast to sugges t malignancy. ULTRASOUND: Complete bilateral US of all 4 quadrants of the breasts and retroareolar region was reviewed. Normal heterogeneous echotexture throughout both breasts. No discrete solid or cystic mass is identified. IMPRESSION: 1. No evidence for malignancy in either breast. 2. Routine yearly screening mammogram and regular clinical breast examination are recommended. BI-RADS Category 1: Negative Reviewed, dictated and finalized at location A. IMPRESSION: 1. No evidence for malignancy in either breast. 2. Routine yearly screening mammogram and regular clinical breast examination a re recommended. BI-RADS Category 1: Negative
== END ==
PROVIDERS: PCP Advanced Practice Midwife; Visit Provider Advanced Practice Midwife
DX: R92.8 Other abnormal and inconclusive findings on diagnostic imaging of breast (principal)
CPT/HCPCS: 76641; 77062; 77066; G0279

== ENCOUNTER 2023-10-30 07:35 | Outpatient (CLI) | payer OTHER, SELFPAY ==
[2023-10-30 08:05] LABS: Basophils Percent Auto 1.1 % (0.2-1.2); Eosinophils Absolute Auto 0.1 K/mm3 (0-0.3); Hematocrit 46.1 % (37.0-47.0); Hemoglobin 15.1 g/dL (12.0-15.0); Immature Granulocyte Absolute 0.01 K/mm3 (0.00-0.031); Immature Granulocyte Percent A 0.3 % (0-0.5); Lymphocytes Absolute Auto 1.56 K/mm3 (0.9-3.2); Lymphocytes Percent Auto 44.2 % (18.3-44.2); Mean Corpuscular HGB Conc 32.8 g/dl (32-36); Mean Corpuscular Hemoglobin 30.9 pg (26-34); Mean Corpuscular Volume 94.5 fl (80-100); Mean Platelet Volume 10.4 fl (7.4-10.4); Monocytes Absolute Auto 0.4 K/mm3 (0.1-0.6); Monocytes Percent Auto 11.9 % (2.6-8.5); Neutrophils Absolute Auto 1.4 K/mm3 (1.3-6.7); Neutrophils Percent Auto 40.5 % (45.5-73.1); Platelet Count Result 174 k/mm3 (150-375); Red Blood Count 4.88 M/mm3 (4.2-5.4); Red Cell Distribution Width 12.8 % (11.5-14.5); White Blood Count 3.5 K/mm3 (4.5-10.0)
[2023-10-30 08:15] LABS: Anion Gap 7 mmol/L (4-12); Blood Urea Nitrogen 15 mg/dL (7-17); Carbon Dioxide 24 mmol/L (22-30); Chloride 107 mmol/L (98-107); Cholesterol 142 mg/dL (0-200); Estimated Glomerular Filt Rate > 60; Glucose 100 mg/dL (65-110); HDL Direct 52 mg/dL; Potassium 4.5 mmol/L (3.4-5.0); Sodium 138 mmol/L (137-145); Triglycerides 62 mg/dL (<150)
[2023-10-30 08:26] LABS: LDL Cholesterol Direct 77 mg/dL
[2023-10-30 08:46] LABS: Thyroid Stimulating Hormone 0.906 uIU/mL (0.465-4.680)
[2023-10-30 09:08] LABS: Vitamin D 25 Hydroxy 29.9 ng/mL
== END 2023-10-30 07:36 | disposition home or self-care (01) ==
LOC: ANHLAB 07:40
PROVIDERS: PCP Family Medicine; Visit Provider Family Medicine
DX: Z00.00 Encounter for general adult medical examination without abnormal findings (principal)
CPT/HCPCS: 36415; 80048; 80061; 82306; 82607; 84443; 85025

== ENCOUNTER 2023-12-10 15:29 | Outpatient (CLI) | payer OTHER, SELFPAY ==
--- NOTE | ~2023-12-10 | MM_ITS ---
EXAMINATION: MM screening huseyin BI w maribel HISTORY: Screening TECHNIQUE: Craniocaudal and mediolateral oblique 3-D tomosynthesis images were obtained and synthetic 2-D images were generated. CAD analysis was submitted and interpreted. COMPARISON: Comparison to multiple prior studies sequentially, with oldest reviewed study dated 12/12. BREAST PARENCHYMAL COMPOSITION: Dense: The breasts are extremely dense, which lowers the sensitivity of mammography. FINDINGS: There is no evidence of suspicious mass, calcification, or architectural distortion to sugg est malignancy in either breast. There has been no suspicious interval change. IMPRESSION: 1. No mammographic evidence of malignancy. 2. Recommend routine screening mammography in one year. BI-RADS Category 1: Negative Reviewed, dictated and finalized at location B.
== END 2023-12-10 15:30 ==
LOC: MICIMG 15:29
PROVIDERS: PCP Family Medicine; Visit Provider Obstetrics & Gynecology Gynecology
DX: Z12.31 Encounter for screening mammogram for malignant neoplasm of breast (principal)
CPT/HCPCS: 77063; 77067

== ENCOUNTER 2024-02-25 17:29 | Emergency (ER) | payer OTHER, SELFPAY ==
--- NOTE | 2024-02-25 17:35 | ED.EAR ---
HPI - Ear Problem General Chief complaint: Ear Stated complaint: Left Earache Time Seen by Provider: 02/25/24 17:35 Source: patient Mode of arrival: ambulatory Limitations: no limitations History of Present Illness HPI Narrative: Nan is a 43-year-old female patient presenting to the clinic today with complaints of left ear pain. She reports pain in the left ear times 1-2 days. Feels pressure/burning pain in the ear. Denies any URI symptoms. Reports slight sore throat but does not feel as though this is strep. Related Data Allergies Allergy/AdvReac Type Severity Reaction Status Date / Time Sulfa (Sulfonamide Allergy Intermediate Skin Verified 02/25/24 17:46 Antibiotics) Reaction Review of Systems Review of Systems: Pertinent positives per HPI. Patient denies any fever, chills, rash, headache, visual changes, dizziness, cough, runny nose, sore throat, shortness of breath, chest pain, palpitations, nausea, vomiting, diarrhea, constipation, abdominal pain, or any urinary issues. [facility] Past Medical History Medical History Healthy adult (normal spontaneous vaginal delivery) Rectal polyp Spontaneous x4 2 required Surgical History Surgical History History of D&C x2 History of salpingectomy Family History Family History Mother Patient's mother is in good health Father Patient's father is in good health Grandparent Family history of malignant neoplasm of breast Family history of coronary artery disease Social History Social History Smoking status: Never smoker Second hand tobacco smoke exposure: No Alcohol intake: never Substance use: never Substance use type: does not use Lack of Transportation: No Lack of Food: Never True Current Housing: I Have Housing Concerned About Future Housing: No Difficulty Paying Gas/Electric Bills: No Difficulty Paying for Meds: No Currently Unemployed: No Education: Master's Degree or Higher Difficulty w/ Childcare or Family Care: No Living arrangements: with family Spiritual care concerns: No Comments At the time of my signature, I reviewed and agree with the nursing past medical, surgical, social, and family history. There is no relevant family history pertinent to the patient complaint. Exam Narrative: General: Well-developed, well nourished, in no apparent distress Head: Normocephalic, atraumatic Eyes: Pupils equally round and reactive to light bilaterally, EOM intact, sclera and conjunctive clear, no discharge, lids normal Ears: Right TMs intact and clear left TM intact, mild bulging, fluid noted behind the TM, ear canals clear, no drainage, grossly hearing normal. Nose: Nares patent, no discharge, no inflammation, no sinus tenderness. Mouth: Oropharynx without lesions or masses, good dentition, MMM. Neck: Supple, trachea midline, no enlargement of anterior or posterior cervical nodes, no thyroid masses or goiter palpable. Cardio: Regular rate and rhythm, s1 and s2 normal, no murmur appreciated. Resp: Clear to auscultation bilaterally anteriorly and posteriorly, no rhonchi, rales, wheezing or rubs Course Course Emergency Course: Portions of this record may have been created with voice recognition software. Level of Care: Express Care Visit Vital Signs Vital signs: Vital Signs Temperature 36.9 C 02/25/24 17:38 Pulse Rate 94 02/25/24 17:38 Respiratory Rate 18 02/25/24 17:38 Blood Pressure 140/91 H 02/25/24 17:38 Pulse Oximetry 100 02/25/24 17:38 Oxygen Delivery Room Air 02/25/24 17:38 Temperature 36.9 C 02/25/24 17:38 Pulse Rate 94 02/25/24 17:38 Respiratory Rate 18 02/25/24 17:38 Blood Pressure 140/91 H 02/25/24 17:38 Puls
[2024-02-25 17:38] VITALS: BP 140/91; PULSE 94; RESP 18; TEMP 36.9; O2SAT 100
== END 2024-02-25 17:55 | disposition home or self-care (01) ==
PROVIDERS: Emergency Provider Nurse Practitioner Family; PCP Family Medicine
DX: H65.02 Acute serous otitis media, left ear (principal)
CPT/HCPCS: 99213; G0463

== ENCOUNTER 2024-02-26 15:06 | Emergency (ER) | payer OTHER, SELFPAY ==
--- NOTE | 2024-02-26 15:18 | ED.URI ---
HPI - URI/Sore Throat General Chief Complaint: Upper Respiratory Infection Stated Complaint: Sore Throat Time Seen by Provider: 02/26/24 15:18 Source: patient Mode of arrival: ambulatory Limitations: no limitations History of Present Illness HPI Narrative: 43-year-old female presents with complaint of sore throat for 1 day. Afebrile. Was seen yesterday and had ear pain. Was offered a strep test but did not feel it was needed at that time. Reports sore throat worse today. Afebrile. All systems reviewed and negative except as noted above. Related Data Allergies Allergy/AdvReac Type Severity Reaction Status Date / Time Sulfa (Sulfonamide Allergy Intermediate Skin Verified 02/25/24 17:46 Antibiotics) Reaction Review of Systems Review of Systems: CONSTITUTIONAL: Denies fever, chills, or sweats. EYES: Denies visual changes, redness, or discharge. ENT: Denies rhinorrhea, congestion. Reports sore throat and otalgia. CARDIOVASCULAR: Denies chest pain, palpitations, or edema. RESPIRATORY: Denies cough or dyspnea. GASTROINTESTINAL: Denies abdominal pain, nausea, vomiting, or diarrhea. GENITOURINARY: Denies dysuria or hematuria. SKIN: Denies rash or itching. MUSCULOSKELETAL: Denies back pain, joint pain, or myalgia. NEUROLOGIC: Denies headache, numbness, or weakness. PSYCHIATRIC: Denies anxiety or depression. All other systems reviewed are negative, except as documented in HPI. [facility] Past Medical History Medical History Healthy adult (normal spontaneous vaginal delivery) Rectal polyp Spontaneous x4 2 required Surgical History Surgical History History of D&C x2 History of salpingectomy Family History Family History Mother Patient's mother is in good health Father Patient's father is in good health Grandparent Family history of malignant neoplasm of breast Family history of coronary artery disease Social History Social History Smoking status: Never smoker Second hand tobacco smoke exposure: No Alcohol intake: never Substance use: never Substance use type: does not use Lack of Transportation: No Lack of Food: Never True Current Housing: I Have Housing Concerned About Future Housing: No Difficulty Paying Gas/Electric Bills: No Difficulty Paying for Meds: No Currently Unemployed: No Education: Master's Degree or Higher Difficulty w/ Childcare or Family Care: No Living arrangements: with family Spiritual care concerns: No Comments At time of signature, agree with nursing past medical, surgical, social and family history. There is no relevant family history pertinent to the presenting complaint. Exam Narrative: GENERAL: This is a well-nourished, well-developed patient, in no apparent distress. HEAD: normocephalic, atraumatic. EYES: PERRL. Sclera clear/white. Vision is grossly intact. EARS: External ears normal, auditory canals clear and without drainage, TMs normal without perforation. Hearing grossly intact. NOSE: External nose normal with no obvious nasal discharge, nares without redness, no rhinorrhea. THROAT: Mucous membranes moist, erythema and mild swelling. No exudates. NECK: Neck supple, non-tender without lymphadenopathy, masses or thyromegaly. CARDIOVASCULAR: Regular rate and rhythm without murmurs, gallops, or rubs. RESPIRATORY: Clear to auscultation. Breath sounds equal bilaterally. No wheezes, rales, or rhonchi. SKIN: warm, Dry, intact with no suspicious lesions or rash, good texture and turgor. NEURO: awake, alert, and oriented to person, place and time. There were no obvious focal neurologic abnormalities. EXTREMITIES: No joint tenderness, effusion, or edema noted. Course Course Level of Care: Expr
[2024-02-26 15:22] VITALS: BP 129/85; PULSE 102; RESP 16; TEMP 36.6; O2SAT 100
[2024-02-28 14:28] LABS: EDCOVIDSCREEN Negative (Negative); EDSTREPNEGPOS1 Positive (Negative)
== END 2024-02-26 15:40 | disposition home or self-care (01) ==
PROVIDERS: Emergency Provider Nurse Practitioner Family; PCP Family Medicine
DX: J02.0 Streptococcal pharyngitis (principal); Z20.822 Contact with and (suspected) exposure to COVID-19
CPT/HCPCS: 87426; 87880; 99213; G0463

== ENCOUNTER 2025-02-23 08:16 | Outpatient (CLI) | payer OTHER, SELFPAY ==
--- NOTE | ~2025-02-23 | MM_ITS ---
EXAMINATION: MM screening huseyin BI w maribel HISTORY: Screening TECHNIQUE: Craniocaudal and mediolateral oblique 3-D tomosynthesis images were obtained and synthetic 2-D images were generated. CAD analysis was submitted and interpreted. COMPARISON: Comparison to multiple prior studies sequentially, with oldest reviewed study dated , 12/12/2021 BREAST PARENCHYMAL COMPOSITION: The breasts are heterogeneously dense, which may obscure small masses. FINDINGS: There is no evidence of suspicious mass, calcification, or architectural distortion to suggest malignancy in either breast. IMPRESSION: 1. No mammographic evidence of malignancy. 2. Recommend routine screening mammography in one year. BI-RADS Category 1: Negative Reviewed, dictated and finalized at location B.
--- OUTSIDE RECORDS SUMMARY | 2025-02-23 08:22 | XMS_ITS | Clinical Summary ---
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
== END 2025-02-23 08:17 | disposition home or self-care (01) ==
LOC: ANHFOHIMG 08:18
PROVIDERS: PCP Family Medicine; Visit Provider Obstetrics & Gynecology Gynecology
DX: Z12.31 Encounter for screening mammogram for malignant neoplasm of breast (principal)
CPT/HCPCS: 77063; 77067